=== PATIENT | male | born 1965 | race American Indian/Alaskan Native ===

== ENCOUNTER 2017-05-10 16:52 | Emergency (ER) | payer MEDICARE ==
[2017-05-10] MEDS ORDERED: ASPIRIN PO ONE (17:28)
[2017-05-10 18:09] LABS: Basophils % (Auto) 0.2 % (0.0-1.8); Hematocrit 43.5 % (35.5-45.6); Hemoglobin 15.1 gm/dl (11.8-15.2); Lymphocytes # (Auto) 1.3 K/mm3 (1.2-5.4); Mean Corpuscular HGB Conc 35 % (32-34); Mean Corpuscular Hemoglobin 32 pg (28-32); Mean Corpuscular Volume 93 fl (84-94); Monocytes # (Auto) 0.9 K/mm3 (0.0-0.8); Monocytes % (Auto) 10.9 % (0.0-7.3); Platelet Count 102 K/mm3 (140-440); Red Blood Count 4.66 M/mm3 (3.65-5.03); Red Cell Distribution Width 13.5 % (13.2-15.2)
[2017-05-10 18:19] LABS: BUN/Creatinine Ratio 7; Blood Urea Nitrogen 5 mg/dL (9-20); Calcium 8.8 mg/dL (8.4-10.2); Hemolysis Index 5
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
[2017-05-10] MEDS ORDERED: NACL 0.9% 1000 ML 1,000 ML IV ONE (19:58)
[2017-05-10] MEDS ORDERED: 1: FOLVITE 1 MG, INFUVITE 10 ML, VITAMIN B-1 100 MG in NACL 0.9% 1000 ML 988.8 ML 2: NA IV SCH (20:00)
[2017-05-10] MEDS ORDERED: ZOFRAN IV ONE (20:00)
[2017-05-10] MEDS: FOLVITE 1 MG, INFUVITE 10 ML in NACL 0.9% 1000 ML 1,000 ML IV SCH ×2 (21:02→22:58)
[2017-05-10 22:13] LABS: Bilirubin,Urine NEG (Negative); Blood,Urine MOD (Negative); Color,Urine Yellow (Yellow); Hyaline Casts,Urine 2 /LPF; Mucus,Urine FEW /HPF
[2017-05-10 22:21] LABS: Amphetamine Screen,Urine PRESUMPTIVE NEGATIVE; Benzodiazepines Screen,Urine PRESUMPTIVE NEGATIVE; Cannabinoid Screen,Urine PRESUMPTIVE NEGATIVE; Cocaine Screen,Urine PRESUMPTIVE NEGATIVE; Methadone Screen,Urine PRESUMPTIVE NEGATIVE; Opiate Screen,Urine PRESUMPTIVE NEGATIVE
[2017-05-10] MEDS ORDERED: ATIVAN IV ONE (22:49)
[2017-05-11] MEDS: VITAMIN B-1 PO SCH ×2 (00:43→12:04)
[2017-05-11] MEDS ORDERED: NACL 0.9% 1000 ML 1,000 ML IV SCH (04:00)
[2017-05-11] MEDS ORDERED: ATIVAN IV ONE (12:27)
[2017-05-11] MEDS ORDERED: NACL 0.9% 1000 ML 1,000 ML IV ONE (12:28)
[2017-05-11] MEDS ORDERED: ATIVAN IV PRN ×3 (15:38)
[2017-05-11] MEDS: FOLVITE 1 MG, INFUVITE 10 ML in NACL 0.9% 1000 ML 1,000 ML IV SCH (21:51)
[2017-05-12 01:33] VITALS: BP 125/74
== END 2017-05-12 07:02 ==
LOC: ED 16:52
DX: F10.10 Alcohol abuse, uncomplicated (principal); F17.200 Nicotine dependence, unspecified, uncomplicated
CPT/HCPCS: 36415; 80048; 80307; 81001; 84484; 85025; 93005; 93010; 96361; 96374; 96375; 99284; G0480; J2060; J2405; J7030; 80320; 92950; 99285